=== PATIENT | female | born 1975 | race Caucasian/White ===

== ENCOUNTER → 2017-10-21 | Outpatient (CLI) | payer OTHER ==
[2015-01-01 20:40] VITALS: BP 156/102
--- NOTE | 2017-10-21 16:20 | US ---
HISTORY: Medial left breast lump and pain Bilateral digital diagnostic mammography with CAD and left breast ultrasound. Comparison: None FINDINGS: Mammogram: Bilateral CC and MLO projections of the right and left breast were obtained. Heterogeneou sly dense fibroglandular tissue is seen to be present. No dominant suspicious architectural distorti on, mass or clustered microcalcifications can be observed to suggest malignancy. There is focal asym metry in the central posterior upper medial quadrant best seen on the craniocaudal view anterior to t he pectoralis musculature with a slightly convex anterior margin but with intervening foci of lucency which may reflect benign asymmetrical fibroglandular parenchyma or an underlying cyst but which will be correlated with ultrasound to exclude a more aggressive process. There is no mammographic abnorma lity in the region of the palpation marker at 9 o'clock. No skin thickening or nipple retraction is a ppreciated. No pathological lymphadenopathy can be identified. Benign-appearing calcifications are noted within the right and left breast. Ultrasound: Multiple grayscale images were obtained from 8-12 o'clock. There are no suspicious cystic or solid nodules. Dense fibrocystic changes are noted. IMPRESSION: Probably benign left breast focal asymmetry without sonographic correlate for which six- month follow-up is recommended to document stability and establish a baseline. In the setting of clin ically suspicious palpable findings, bilateral breast MRI without and with contrast could be consider ed in the interim. ACR CATEGORY 3 - probably benign findings; short interval follow-up suggested. Diagnostic CAD was utilized and reviewed. * 0 (ZERO) - ASSESSMENT INCOMPLETE; ADDITIONAL IMAGING IS NEEDED. * 1/1 (ONE) - NEGATIVE. * 2/II (TWO) - BENIGN FINDINGS. * 3/III (THREE) - PROBABLY BENIGN FINDING; SHORT INTERVAL FOLLOW-UP SUGGESTED. * 4/IV (FOUR) - SUSPICIOUS ABNORMALITY; BIOPSY SHOULD BE CONSIDERED. * 5/V - HIGHLY SUSPICIOUS OF MALIGNANCY; BIOPSY SHOULD BE PERFORMED. A NEGATIVE X-RAY REPORT SHOULD NOT DELAY BIOPSY IF A DOMINANT OR CLINICALLY SUSPICIOUS MASS IS PRESENT; 4 TO 8 PERCENT OF CANCERS ARE NOT IDENTIFIED BY X-RAY. A NEGA TIVE REPORT MAY REINFORCE THE CLINICAL IMPRESSION. ADENOSIS AND DENSE BREASTS MAY OBSCURE AN UNDERLY ING NEOPLASM. Reported By:
== END ==
LOC: RAD 14:00
PROVIDERS: ATTEND Internal Medicine
DX: N63.0 Unspecified lump in unspecified breast (principal)
CPT/HCPCS: 76642; 77066